=== PATIENT | male | born 1995 ===

== ENCOUNTER 2023-09-21 16:45 | Emergency (ER) | payer OTHER, SELFPAY ==
[2023-09-21 17:09] VITALS: BP 153/105; PULSE 107; RESP 16; TEMP 37; O2SAT 97
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
[2023-09-21] MEDS: TETANUS,DIPHTHERIA,AC PERTUSSIS ADULT (0.5 ML) BOOSTRIX IM (18:04)
== END 2023-09-21 18:10 | disposition home or self-care (01) ==
PROVIDERS: Emergency Provider Nurse Practitioner; PCP Family Medicine
DX: S91.332A Puncture wound without foreign body, left foot, initial encounter (principal); Z23 Encounter for immunization; W26.8XXA Contact with other sharp object(s), not elsewhere classified, initial encounter
CPT/HCPCS: 90715; 99213; G0463

== ENCOUNTER 2023-09-30 21:44 | Emergency (ER) | payer OTHER, SELFPAY ==
[2023-09-30 21:45] VITALS: BP 168/109; PULSE 106; RESP 20; TEMP 36.4; O2SAT 98
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
[2023-09-30 23:06] LABS: HIV 1/2 Ab P24 Ag Result Negative (Negative)
[2023-09-30 23:15] LABS: Hepatitis B Surface Anti Res Positive; Hepatitis C Virus Antibody Negative (Negative)
[2023-09-30 23:28] VITALS: BP 123/70; PULSE 65; RESP 17; TEMP 36.6; O2SAT 100
== END 2023-09-30 23:29 | disposition home or self-care (01) ==
PROVIDERS: Student in an Organized Health Care Education/Training Program; Emergency Provider Physician Assistant; PCP Family Medicine
DX: S61.232A Puncture wound without foreign body of right middle finger without damage to nail, initial encounter (principal); W46.1XXA Contact with contaminated hypodermic needle, initial encounter
CPT/HCPCS: 36415; 86703; 86706; 86803; 99283; G0432

== ENCOUNTER 2025-07-10 19:23 | Emergency (ER) | payer OTHER, SELFPAY ==
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
--- OUTSIDE RECORDS SUMMARY | 2025-07-10 19:25 | XMS_ITS | Clinical Summary ---
Author Organization [facility] Address [address] [place] [address] Care Team Providers Care Road Marker Name Role Phone Unknown, Notinfile Primary Care Provider Unavail able Allergies No known active allergies Medications famotidine (PEPCID) 20 mg tablet Take 1 tablet (20 mg total) by mouth daily 30 tablet 03/08/2022 Active Active Problems Problem Noted Date Diagnosed Date Pilonidal cyst 09/13/2012 Social History Tobacco Use Types Packs/Day Years Used Date Smoking Tobacco: Never Smokeless Tobacco: Never Personal Safety Answer Date Recorded Getting School Help Needed Not on file 10/23 Sex and Gender Information Value Date Recorded Sex Assigned at Not on file Legal Sex Male 4:04 AM [employer] Gender Identity Not on file Sexual Orientation Not on file Last Filed Vital Signs Vital Sign Reading Time Taken Comments Blood Pressure 145/90 03/08/2022 10:13 AM CDT Pulse 88 03/08/2022 10:13 AM CDT Temperature 36.4 C (97.5 F) 03/08/2022 8:13 AM CDT Respiratory Rate 18 03/08/2022 10:13 AM CDT Oxygen Saturation 100% 03/08/2022 10:13 AM CDT Inhaled Oxygen Concentration - - Weight 93 kg (205 lb) 03/08/2022 8:13 AM CDT Height 182.9 cm (6') 03/08/2022 8:13 AM CDT Body Mass Index 27.8 03/08/2022 8:13 AM CDT Plan of Treatment Not on file Insurance ANTHEM ACCESS CHOICE ANTHEM ACCESS CHOICE ANTHEM ACCESS CHOICE Care Teams Road Marker Relationship Specialty Start Date End Date Unknown, Notinfile PCP - General 03/01/21
[2025-07-10 19:27] VITALS: BP 149/109; PULSE 120; RESP 20; TEMP 36.6; O2SAT 96
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
[2025-07-10 20:17] VITALS: BP 145/92; PULSE 93; RESP 18; O2SAT 99
== END 2025-07-10 20:18 | disposition home or self-care (01) ==
PROVIDERS: Emergency Provider Physician Assistant; PCP Family Medicine
DX: S63.642A Sprain of metacarpophalangeal joint of left thumb, initial encounter (principal); X58.XXXA Exposure to other specified factors, initial encounter; I10 Essential (primary) hypertension; Z87.891 Personal history of nicotine dependence
CPT/HCPCS: 73130; 99283